=== PATIENT | male | born 1990 | race Caucasian/White ===

== ENCOUNTER 2021-03-24 08:12 | Emergency (ER) | payer OTHER ==
[~2021-03-24] VITALS: Ht 175.3 cm; Wt 108.9 kg
[2021-03-24 08:20] VITALS: BP 153/90
[2021-03-24] MEDS ORDERED: LEXAPRO20 MG PO (08:23)
[2021-03-24] MEDS ORDERED: OXTELLAR XR150 MG PO (08:24)
[2021-03-24] MEDS ORDERED: BUPROPION XL300 MG PO (08:24)
== END 2021-03-24 08:25 | disposition left against medical advice (07) ==
LOC: M.ERS 08:12
DX: R50.9 Fever, unspecified (principal); Z20.822 Contact with and (suspected) exposure to COVID-19; R05.9 Cough, unspecified; R51.9 Headache, unspecified; R06.02 Shortness of breath; R09.81 Nasal congestion